=== PATIENT | male | born 1990 | race Two or more races ===

== ENCOUNTER 2024-09-01 12:20 | Emergency (ER) | payer MEDICAID ==
[~2024-09-01] VITALS: Ht 175.3 cm; Wt 54.4 kg
[2024-09-01 12:21] VITALS: O2SAT 99
[2024-09-01 12:31] VITALS: BP 135/84; PULSE 93; RESP 16; TEMP 37.1; O2SAT 98
[2024-09-01] MEDS ORDERED: HYDR28OI2 TP (13:36)
[2024-09-01] MEDS ORDERED: DIPH28.33 TP (13:36)
[2024-09-01] MEDS ORDERED: PERM60CR4 TP (13:36)
== END 2024-09-01 14:40 | disposition home or self-care (01) ==
LOC: ER 12:20
DX: B86 Scabies (principal); Z79.899 Other long term (current) drug therapy; Z98.890 Other specified postprocedural states; W57.XXXA Bitten or stung by nonvenomous insect and other nonvenomous arthropods, initial encounter; Y93.89 Activity, other specified; Y92.89 Other specified places as the place of occurrence of the external cause; Y99.8 Other external cause status
CPT/HCPCS: 99282